=== PATIENT | male | born 1985 | race Caucasian/White ===

== ENCOUNTER → 2016-07-25 | Outpatient (REF) ==
--- NOTE | 2016-07-25 18:22 | REP ---
Clinical: Pain and disability. Technique: AP, lateral, coned-down views of the lumbosacral spine. Findings: Alignment and lordosis maintained. No acute fracture / compression injury or subluxation. Mild endplate sclerosis with disc space narrowing at the L5-S1 level noted. Impression: Mild degenerative disc disease at the L5-S1 level. Signed by Chase Cardenas MD 07/25/2016 06:14 P
== END ==
LOC: M SMT 11:19
PROVIDERS: ATTEND Internal Medicine
DX: Z02.71 Encounter for disability determination (principal); M51.37 Other intervertebral disc degeneration, lumbosacral region

== ENCOUNTER → 2017-02-05 | Outpatient (REF) | payer OTHER ==
[2017-02-05 21:05] LABS: CALCIUM OXALATE CRYSTALS SMALL
== END ==
LOC: M SMT 17:10
PROVIDERS: ATTEND Nurse Practitioner Women's Health
DX: R32 Unspecified urinary incontinence (principal); R39.15 Urgency of urination

== ENCOUNTER → 2018-12-05 | Outpatient (REF) | payer OTHER | LOC: M SMT 13:48 | PROVIDERS: ATTEND Urology | DX: N50.812 Left testicular pain (principal) ==

== ENCOUNTER 2018-12-20 12:43 | Day surgery (SDC) | payer MEDICARE, MEDICAID ==
[~2018-12-20] VITALS: Ht 182.9 cm; Wt 102.1 kg
[~2018-12-20 12:43] MED LIST: ALBU83IN INH; AMLO25TA PO; CLON0.5T8 PO; FLUO20CA8 PO; FOLI1TAB11 PO; HUMI40KI SC; HYDR-3713 PO; IPRA2IN INH; LIDOCAINE 1% MDV 20ML VIAL SQ PRN; LR 1,000 ML IV ONE; NAPR500T6 PO; NASA1SPR; OMEP10CASR PO; PREG100CA PO; PREG50CA PO; TRAZ-163 PO
[2018-12-20] MEDS ORDERED: PROPOFOL 200 MG/20 ML VIAL As Ordered ONE (13:42)
[2018-12-20] MEDS ORDERED: LIDOCAINE 2% INJ 100 MG/5 ML SDV (FOR ANES.) As Ordered ONE (13:43)
[2018-12-20] MEDS ORDERED: dexameTHASONE 4 MG/ML 1ML VIAL (J1100) As Ordered ONE (13:44)
[2018-12-20] MEDS ORDERED: fentaNYL 100 MCG/2 ML INJECTION (J3010) As Ordered ONE ×3 (13:44→17:19)
[2018-12-20] MEDS ORDERED: ONDANSETRON 4MG/2ML VIAL (J2405) As Ordered ONE (13:44)
[2018-12-20] MEDS ORDERED: MIDAZOLAM INJ 2 MG/2 ML VIAL (J2250) As Ordered ONE (13:45)
[2018-12-20] MEDS ORDERED: BUPIVACAINE HCL 0.25% 30 ML VIAL As Ordered ONE (15:34)
[2018-12-20] MEDS ORDERED: ACETAMINOPHEN 1000MG 100ML IV BTL (OFIRMEV) (J0131 PER 10MG) As Ordered ONE (15:54)
[2018-12-20] MEDS ORDERED: BACITRACIN OINT 30GM As Ordered ONE (16:24)
--- NOTE | 2018-12-20 17:11 | ROOPDOC ---
[facility] Report Of Operation Report of Operation DATE OF PROCEDURE: 12/20/18 PREPROCEDURE DIAGNOSES: Chronic Left Testicular Pain. POSTPROCEDURE DIAGNOSES: Chronic Left Testicular Pain. PROCEDURE: Left Simple Orchiectomy. SURGEON: Padmaja Ulloa MD [employer] OPERATOR: None ANESTHESIA: General. OPERATIVE INDICATIONS: This is a 33 year old male with chronic debilitating left testicular pain with no obvious cause found on extensive testing. Due to the severity of the pain he requested a left simple orchiectomy. He is here today for this procedure. DESCRIPTION OF PROCEDURE: The patient was brought to the operating room and general anesthesia was induced. Prophylactic antibiotics were infused. He was then placed in the supine position in preparation for the above listed procedure. Next an approximately a 3-4 cm transverse incision was made over the left hemiscrotum. We then dissected down through the scrotal wall layers. The testicle was then delivered outside of the tunica vaginalis. The spermatic cord was then carefully dissected and then high on the cord a Stacey clamp was placed. Just distal to the Stacey clamp the cord was into two separate packets and then a clamp was placed on each packet. The spermatic cord was then transected distal to those clamps. At this point 0 Vicryl free ties were placed each packet. Next an 0-Vicryl suture ligature was placed around the more proximal Stacey clamp. Once this was done hemostasis was checked and any areas of bleeding were controlled with electrocautery. Once I was satisfied with hemostasis the wound was irrigated. At this point we began closing with a running 2-0 Vicryl suture. The skin was closed with interrupted 2-0 chromic sutures. Bacitracin ointment was applied to all of the incisions and dressings were applied and this marked the conclusion of the procedure. The patient was then awakened from anesthesia and transported to the recovery room in stable condition. ESTIMATED BLOOD LOSS: Approximately 5 mL. COMPLICATIONS: None. SPECIMENS: Left Testicle. PLAN: The patient will follow up in clinic in 1-2 weeks. PADMAJA ULLOA MD Dec 20, 2018 17:11
[2018-12-20] MEDS ORDERED: oxyCODONE 5MG TAB As Ordered ONE (17:19)
[2018-12-20] MEDS: fentaNYL 100 MCG/2 ML INJECTION (J3010) IV PRN ×4 (17:25→17:40)
[2018-12-20] MEDS: oxyCODONE 5MG TAB PO PRN ×2 (17:26→17:55)
[2018-12-20] MEDS ORDERED: LR 1,000 ML IV SCH (17:30)
[2018-12-20] MEDS ORDERED: NORCO, ANEXSIA 5/325MG TABLET (HYDROcodone/ACETAMINOPHEN) PO PRN ×2 (17:30)
[2018-12-20] MEDS ORDERED: ONDANSETRON 4MG/2ML VIAL (J2405) IV PRN (17:30)
[2018-12-20] MEDS ORDERED: KETOROLAC 30 MG/ML VIAL (J1885) As Ordered ONE (17:56)
[2018-12-20] MEDS ORDERED: MORPHINE 10 MG/ML 1ML VIAL (J2270) As Ordered ONE (17:56)
[2018-12-20] MEDS ORDERED: KETOROLAC 30 MG/ML VIAL (J1885) IV PRN (18:00)
[2018-12-20] MEDS: MORPHINE 10 MG/ML 1ML VIAL (J2270) IV PRN ×5 (18:00→18:20)
[2018-12-20 19:10] VITALS: BP 138/79
== END 2018-12-20 19:15 | disposition home or self-care (01) ==
LOC: M SDC 12:43
PROVIDERS: ATTEND Urology
DX: N50.812 Left testicular pain (principal); I10 Essential (primary) hypertension; K58.8 Other irritable bowel syndrome; K21.9 Gastro-esophageal reflux disease without esophagitis; F32.9 Major depressive disorder, single episode, unspecified; G47.30 Sleep apnea, unspecified; L40.8 Other psoriasis; J44.9 Chronic obstructive pulmonary disease, unspecified; F17.210 Nicotine dependence, cigarettes, uncomplicated; Z88.8 Allergy status to other drugs, medicaments and biological substances; Z79.51 Long term (current) use of inhaled steroids; Z79.899 Other long term (current) drug therapy
CPT/HCPCS: 54520; 88305; J0131; J0690; J1100; J1885; J2250; J2270; J2405; J3010